=== PATIENT | male | born 1950 | race Caucasian/White ===

== ENCOUNTER → 2022-04-08 | Outpatient (CLI) | payer MEDICARE, OTHER ==
[~2022-04-08] MED LIST: FOSINOPRIL SODI10 MG PO; GABAPENTIN300 MG PO; HYDROCHLOROTHIA25 MG PO; METFORMIN HCL850 MG PO; METOPROLOL SUCC25 MG PO; NIFEDICAL XL30 MG PO; SIMVASTATIN40 MG PO
== END ==
LOC: CT 08:25
PROVIDERS: ATTEND Family Medicine
DX: J44.9 Chronic obstructive pulmonary disease, unspecified (principal); F17.210 Nicotine dependence, cigarettes, uncomplicated
CPT/HCPCS: 71250